=== PATIENT | male | born 1990 | race Caucasian/White ===

== ENCOUNTER 2022-01-16 17:00 | Emergency (ER) | payer BC ==
[~2022-01-16] VITALS: Ht 182.9 cm; Wt 126.6 kg
[2022-01-16 19:34] VITALS: BP 149/78
== END 2022-01-16 19:35 | disposition home or self-care (01) | DRG 866 ==
LOC: ED 17:00
DX: B34.9 Viral infection, unspecified (principal); I10 Essential (primary) hypertension

== ENCOUNTER 2022-01-28 15:57 | Emergency (ER) | payer BC ==
[~2022-01-28] VITALS: Ht 182.9 cm; Wt 127.3 kg
[2022-01-28 16:11] VITALS: BP 132/87
[2022-01-28 16:16] VITALS: BP 143/93
[2022-01-28] MEDS ORDERED: CEPHALEXIN500 MG PO (16:22)
[2022-01-28 16:24] VITALS: BP 132/87
== END 2022-01-28 17:00 | disposition home or self-care (01) | DRG 605 ==
LOC: ED 15:57
DX: S61.011A Laceration without foreign body of right thumb without damage to nail, initial encounter (principal); W45.8XXA Other foreign body or object entering through skin, initial encounter; W22.8XXA Striking against or struck by other objects, initial encounter